=== PATIENT | male | born 1955 | race Caucasian/White ===

== ENCOUNTER 2024-04-08 09:39 | Inpatient (IN) | payer BC, SELFPAY ==
[2024-04-07 21:10] VITALS: BP 137/90
[2024-04-07 22:20] LABS: % Basophils 0.5 % (0-2); % Immature Granulocytes 1.1 % (0-0.5); % Monocytes 4.8 % (1.7-9.3); % Neutrophils 83.6 % (42.2-75.2); Absolute Immature Granulocytes 0.1 10^3/uL (0-0.05); Absolute Lymphocytes 0.6 10^3/uL (1.2-3.4); Absolute Monocytes 0.3 10^3/uL (0.1-0.6); Absolute Neutrophils 5.4 10^3/uL (1.4-6.5); Hematocrit 36.5 % (39.0-52.0); Hemoglobin 13.1 g/dL (13.0-18.0); Mean Corp Hgb Conc. 35.9 g/dL (33.0-37.0); Mean Corpuscular Hgb 34.7 pg (27.0-31.0); Mean Corpuscular Volume 96.6 fL (80.0-94.0); Mean Platelet Volume 9.1 fL (7.4-10.4); Nucleated Red Blood Cells % 0 % (-); Platelet Count 210 10^3/uL (130-400); Red Blood Cell Count 3.78 10^6/uL (4.70-6.10); Red Cell Dist. Width 12.5 % (11.5-14.5); White Blood Cell Count 6.4 10^3/uL (4.8-10.8)
[2024-04-07 22:30] LABS: COVID-19 Antigen Negative (Negative)
[2024-04-07 22:31] LABS: ALT (SGPT) 51 U/L (0-50); AST (SGOT) 48 U/L (17-59); Albumin 4.2 g/dl (3.5-5.0); Alkaline Phosphatase 108 U/L (38-126); Blood Urea Nitrogen 20 mg/dl (9-20); Calcium 9.3 mg/dl (8.4-10.2); Carbon Dioxide 26 mmol/L (22-30); Chloride 92 mmol/L (98-107); Glucose 118 mg/dl (70-99); Potassium 4.4 mmol/L (3.5-5.1); Sodium 129 mmol/L (135-145); Total Bilirubin 0.9 mg/dl (0.2-1.3); Total Protein 6.9 g/dl (6.3-8.2); eGFR > 60.00
--- NOTE | 2024-04-07 23:57 | ED.GENMED ---
History of Present Illness
General
Chief Complaint: Weakness
Source: patient
Exam Limitations: none
Time Seen by Provider: 04/07/24 22:46
History of Present Illness
History of Present Illness:
This is a 68 year old male that comes in with c/o vomiting and diarrhea. States that he has been sick for 2 days and today he is very weak. Patient states that he fell at home today. States that he but both of his knee's and hit his face. States
that there was no LOC and he was unable to get up. States that he did have chills. Denies any fever, chest pain, SOB, abd pain, headache, dizziness, urinary burning.
Past History
Past History
ED Past Medical History: Cancer (Prostate Cancer), HTN, Hypercholesterolemia, Psychiatric (Anxiety) and Other (Cervical radiculopathy)
ED Past Surgical History: Appendectomy, Tonsilectomy and Urological (Prostatectomy)
Social History
Tobacco: Non-smoker
Alcohol: Occasional
Personal: Single
Living: alone
Review of Systems
Review of Systems
All Other Systems: ROS reviewed and negative except as documented in HPI and ROS
Constitutional: Reports chills; Denies fever
EENT: Reports no symptoms
Respiratory: Reports no symptoms; Denies cough or trouble breathing
Cardiac: Reports no symptoms; Denies chest pain
ABD/GI: Reports nausea, vomiting and diarrhea; Denies abdominal pain
: Reports no symptoms; Denies dysuria, frequency or urgency
Musculoskeletal: Reports no symptoms
Skin: Reports no symptoms
Neurological: Denies dizzy or headache
Psychiatric: Reports no symptoms
Phy Exam
General Physical Exam
General Presentation: no apparent distress
General age: appears stated age
General Skin: warm and dry
General Habitus: elderly
General Mental: alert
General Hydration: dry mucous membranes
ENT Exam
ENT Exam: TM's normal, pharynx normal, neck supple and other (Dried blood noted in left nares)
Eye Exam
Eye Exam: EOMI
Cardiovascular Exam
Cardiovascular Exam: regular rate/rhythm, no edema, no murmur and normal peripheral pulses
Pulmonary Exam
Pulmonary Exam: lungs clear, no respiratory distress, no rales, chest non tender, no crackles, no rhonchi, no wheezing and no cough
Gastrointestinal Exam
Gastrointestinal Exam: normal bowel sounds, non tender, soft, no organomegaly, no pulsatile mass and non distended
Musculoskeletal Exam
Musculoskeletal Exam: full ROM and no edema
Skin Exam
Skin Exam: normal color, warm/dry, no rash, no petechia, laceration (Of the right knee) and other (Superficial laceration to the left knee, Laceration of the right knee sutured)
Psychiatric Exam
Psychiatric Exam: normal mood/affect
Course
Orders/Labs/Results
Orders:
Orders
04/07/24 21:17
CR Knee- Right 4 Or More View* Urgent
Comment:
Reason For Exam: injury and R/O FB landed on glass
Knee, Left 4 or More Views [CR Knee - Left 4 Or More View*] Urgent
Comment:
Reason For Exam: injury abd R/O FB the patient landed on glass
04/07/24 21:18
Electrocardiogram (*1) Urgent
Reason for Study: Fatigue / Weakness
04/07/24 21:[address] [CT Head W/o Iv Contrast] Urgent
Comment:
Reason For Exam: head injury
EKG- Treatment ONCE
04/07/24 21:34
Facial Bones wo Contrast CT [CT Facial Bones W/o Iv Contras] Urgent
Comment:
Reason For Exam: FALL
04/07/24 22:09
CMP [Comprehensive Metabolic Panel] Urgent
COVID-19 Antigen Urgent
Source: Nasal Swab
Complete Blood Count/With Diff Urgent
Influenza A+B Rapid Molecular Urgent
[facility] Source: Nasal Swab
Specimen Description:
Abnormal Lab Results
04/07/24
22:09
RBC 3.78 L 10^6/uL
(4.70-6.10)
Hct 36.5 L %
(39.0-52.0)
MCV 96.6 H fL
(80.0-94.0)
MCH 34.7 H pg
(27.0-31.0)
Abs Immat Gran (auto) 0.1 H 10^3/uL
(0-0.05)
Absolute Lymphs (auto) 0.6 L 10^3/uL
(1.2-3.4)
Immature Gran % 1.1 H %
(0-0.5)
Neutrophils % 83.6 H %
(42.2-75.2)
Lymphocytes % 10.0 L %
(20.5-51.1)
Sodium 129 L mmol/L
(135-145)
Chloride 92 L mmol/L
(98-107)
Glucose 118 H mg/dl
(70-99)
ALT 51 H U/L
(0-50)
04/07/24 22:09
04/07/24 22:09
Hyponatremia, Chloride low. Hyperglycemia. ALT very slightly elevated. negative for COVID.
Vital Signs
Initial and Last Documented VS:
Initial Vital Signs
Temp Pulse Resp BP Pulse Ox
98.9 F 104 18 137/90 94
04/07/24 21:10 04/07/24 21:10 04/07/24 21:10 04/07/24 21:10 04/07/24 21:10
Last Documented Vital Signs
Temp Pulse Resp BP Pulse Ox
98.9 F 104 18 137/90 94
04/07/24 21:10 04/07/24 21:10 04/07/24 21:10 04/07/24 21:10 04/07/24 21:10
Procedures
Laceration Closure
Right Knee:
Status of Wound: clean
Size of Wound in cm: 4
Description of Wound Edges: sharp
Preparation: cleaned with saline and cleaned with Betadine (Scrub and peroxide)
Anesthesia: 1% Lidocaine with epi
Revision/Debridement: routine- no revision
Wound exploration: explored to base- no FB
Type of Closure: single layer closure
Skin Closure Material: 4-0 nylon
Number of sutures: 13
Left Knee:
Status of Wound: clean
Size of Wound in cm: 2
Description of Wound Edges: sharp
Preparation: cleaned with saline
Type of Closure: Dermabond-skin glue
Additional information:
With steri strips
MDM/Problems Addressed
Differential Diagnosis Includes:
Viral syndrome, Hyponatremia.
MDM/Problems Addressed:
This is a 68 year old male that comes in with c/o weakness and and fall. States that he has had vomiting and diarrhea for the past 2 days. States that today he fell hitting his face and has laceration to both knee's.
Will check labs, CT head and facal bones. COVID, Suture lacerations.
Exxplained to patient that he does have a nasal fracture. This can be followed up with the ENT specialist. He has a laceration of the right knee with 13 suture. They can be removed in the next 10-14 days. The left knee has steri strips with
Dermabond and this will fall off on its own. Family states that the patient has so much trash in his home that there is no were to walk. Since he has had diarrhea it is everywhere. Will admit patient for weakness, Laceration, Fractures Falls and
Hyponatremia.
Chronic conditions affecting care: HTN
Acute Exacerbation and/or Progression of Chronic Illness:
NA
*Radiology
Radiology exam reviewed: radiology read reviewed (CT facial bones-There is acute displaced nondepressed nasal bone fracture. There is mild bilateral ethmoid sinusitis. CT head-There is no focal or acute intracranial abnormalities. There is mild
diffuse cortical and cerebellar atrophy Knee, right-There is an 8mm triangular shaped foreign body), all reviewed NAD by ED Provider (X-ray right knee=close to the skin surface overlying the anterolateral aspect proximal tibial metaphysis. There is
a 9mm oval foreign body close to the skin surface at the anterior medial aspect of the patella. Left knee-There is a 4mm traingular-shaped foreign body close to the skin surface at ) and other (Left knee Cont- lateral aspect of the proximal tibial
diaphysis. )
*Pulse Oximetry
Patient hypoxic: no
*EKG
Interpreted by ED Provider?: Yes
Heart Rate: 99
Rate: normal
Rhythm: sinus
[place]: left axis deviation
Interval: normal interval
QRS Pattern: normal QRS
Ischemia: no ischemia
*Harbormaster Interpretation
Rate: Harbormaster- N/A
*Critical Care Note
Total Time (30-74mins, 75-104mins- exclusive of procedures): Not Applicable
ED Attending Note
-
Portions of this chart may have been created with voice recognition software.� Occasional wrong word or��sound alike� substitutions may have occurred due to the inherent limitations of voice recognition software.
Discharge Plan
Departure
Patient Disposition: Admit
Date of Disposition: 04/08/24
Time of Disposition: 00:14
Admit to: Med/Surg
Presentation/result/management discussed w/ accepting MD/DO: Hospitalist
Patient with high blood pressure during this ER visit?: Yes
Covid-19: Negative COVID-19
Discharge Problem:
Nausea vomiting and diarrhea, Hyponatremia, Fracture of nasal bone, Falls, Laceration of knee, right, Superficial laceration left knee, Weakness
Prescriptions:
No Action
bacitracin zinc 1 APPLIC ointment
1 applic topical BID Qty: 1 0RF
metoprolol succinate [Toprol XL] 25 mg tablet extended release 24 hr
25 mg PO DAILY Qty: 30 0RF
cephalexin 500 mg capsule
500 mg PO Q6H Qty: 28 0RF
amoxicillin-pot clavulanate 875-125 mg tablet
1 tab PO BID Qty: 20 0RF
Referrals:
UNKNOWN - PT DOES,NOT KNOW [Family Provider] -
Interventions
Interventions:
*Risk Screen - Suicide Last Done: 04/07/24 21:10
*ED COVID-19 Vaccine History Last Done: 04/07/24 21:10
Discharge Date and Time
Print Language: BULGARIAN
[2024-04-08] VITALS (12 sets, daily range): BP systolic 129–165; BP diastolic 67–112; BMI 31.3
[2024-04-08 00:22] LABS: Urine Albumin Negative (Neg - Trace); Urine Bilirubin Negative (Negative); Urine Character Clear (Clear); Urine Color Yellow; Urine Glucose Negative (Negative); Urine Ketone Negative (Negative); Urine Leukocyte Negative (Negative); Urine Nitrite Negative (Negative); Urine Occult Blood 1+ (Negative); Urine Urobilinogen Negative (Neg - 1+)
--- NOTE | 2024-04-08 00:32 | HPS.HSE ---
Family Physician
-
Family Physician: NOT KNOW UNKNOWN - PT DOES
Chief Complaint
-
Weakness and fall
History of Present Illness
This is a 68-year-old was past medical history significant for anxiety and hypertension presenting to the emergency department with a fall, with laceration of the right knee and superficial laceration to the left knee as well as nondisplaced nasal
fracture.
Patient tells me that for a few days he has been having diarrhea and vomiting. The last diarrhea episode was yesterday. He denies having any diarrhea today. There was no melena and no hematochezia. He did not ED reports intermittent vomiting and
nausea with decreased p.o. intake. He states he has been drinking mostly water. He reports intermittent chills at home. He lives by himself and denies any known sick contacts. He reports only taking metoprolol, he also drinks about 2 cups of
wine daily.
He is reported to [employer] at home with numerous objects and he likely tripped on 1 of these as he can barely walk around his house. He reports history of prostate cancer status post surgery with episodes of urinary urgency but no frequency
and no nocturia. Denies dysuria.
In the emergency department initial vital signs were stable, temp was 98.9, blood pressure was 137/90 with a pulse of 100.
CBC was unremarkable
Chemistries notable for sodium of 129, BUN was 20 and creatinine 1.1. LFTs shows a slight elevation in ALT to 51 which is similar to prior. UA is unremarkable. COVID and flu test were negative.
Medical History
Past Medical History
Past Medical History: Reports Cancer (Prostate cancer status post resection), HTN, Hypercholesterolemia and Psychiatric (anxiety)
Past Surgical History: Reports Appendectomy, Tonsilectomy and Urological (Prostatectomy)
Social History
Tobacco: Non-smoker
Alcohol: Occasional
Drug: None
Personal: Single
Living: Alone
Employment: Employed
Family History
Family History: Not pertinent
Allergies / Home Medications
Allergies reflects when Allergies were last updated in [facility].
Home Medications with original date entered in [facility]
Allergy/Medication List:
Allergies
Allergy/AdvReac Type Severity Reaction Status Date / Time
No Known Allergies Allergy Verified 04/07/24 21:10
Home Medications
metoprolol succinate 25 mg tablet,extended release 24 hr (Toprol XL) 25 mg PO DAILY #30 tabs 12/30/22
alprazolam 2 mg tablet (Xanax) 1 mg PO PRN PRN anxiety/sleep 04/08/24
zolpidem 10 mg tablet (Ambien) 10 mg PO HS 04/08/24
Review of Systems
-
History Source: Patient
Constitutional: Reports Fatigue
EENT: Reports No Symptoms
Respiratory: Reports No Symptoms
Cardiac: Reports No Symptoms
Abdomen/GI: Reports No Symptoms
: Reports No Symptoms
Musculoskeletal: Reports No Symptoms
Neurological: Reports Weakness
Endocrine: Reports No Symptoms
Hematologic/Lymphatic: Reports No Symptoms
Psych: Reports No Symptoms
Physical Exam
Vital Signs
Vital Signs
Temp Pulse Resp BP Pulse Ox
98.9 F 104 18 137/90 94
04/07/24 21:10 04/07/24 21:10 04/07/24 21:10 04/07/24 21:10 04/07/24 21:10
Physical Exam
General: Comfortable
HEENT: NormoCephalic, Anicteric, PERRLA and Other (small laceration down the right side of the nose)
Respiratory: Clear
Cardiac: S1/S2 and Regular Rhythm
Breast: Deferred by me
GI: Soft, Non Tender, Non Distended and Normal Bowel Sounds
Rectal: Deferred by Provider
Genito-urinary: Clear Urine
Musculoskeletal: No Clubbing, No Cyanosis and No Edema
Skin: Warm and Other (laceration of the right knee s/p sutures. )
Neuro: AO x 3 and Nonfocal/grossly intact
Hematologic/Lymphatic: No Lymphadenopathy
Psych: Calm
Laboratory Results
-
04/07/24 22:09
04/07/24 22:09
Laboratory Results
Total Bilirubin 0.9 mg/dl (0.2-1.3) 04/07/24 22:09
AST 48 U/L (17-59) 04/07/24 22:09
ALT 51 U/L (0-50) H 04/07/24 22:
Alkaline Phosphatase 108 U/L (38-126) 04/07/24 22:09
Data Reviewed
-
CT Scan: Report Reviewed by me
Lab Data: Labs Reviewed by me
Old Records: Reviewed
Impression/Plan
-
IMPRESSION:
Patient with 2 to 3 days of diarrhea and vomiting with decreased p.o. intake who presents to the emergency department following a fall with laceration of the right hand superficial laceration of the left knee as well as a mild nasal bone injury. CT
scan shows acute nondisplaced nondepressed nasal bone fracture. Mild bilateral ethmoid sinusitis. The head CT shows no focal abnormalities. Found to be hyponatremic to 129.
Plan:
1. Hyponatremia - Na 129 recent diarrhea, vomiting and decreased po intake. Drinking mostly water. No hctz, thiazides or AEDs. Looks dry on exam. Hypovolemic hyponatremia suspected
- admit to med/surg obs
- IV NS overnight
- check U na and Osm now with follow up Serum Na in am
- monitor for ongoing diarrhea (patient stated it stopped)
2. Weakness - Suspect due to viral illness and dehydration. Initial temp was normal but felt warm to me and repeat was febrile. No immediate source of infection. COVID/Flu negative. U/A unremarkable.
- check chest xray and procalcitonin
- monitor fever profile
- if diarrhea likley viral
3. HTN
- continue metoprolol for now
4. PT evaluation
DVT PPX - lovenox sq
Code status - full code.
[2024-04-08 00:49] LABS: Urine Bacteria Moderate (Negative); Urine White Cell 0-2 /HPF (0-5)
[2024-04-08 01:18] LABS: Osmolality Urine 197 mOsm/kg (300-900)
[2024-04-08] MEDS: AMBIEN 10 MG PO (01:19)
[2024-04-08 01:23] LABS: Urine Sodium 21 mmol/L (30-90)
[2024-04-08 01:40] LABS: Alcohol None Detected
[2024-04-08] MEDS: NSS 1000 IV (02:06)
[2024-04-08 02:14] LABS: Procalcitonin 0.67 ng/ml (0.0-0.25)
[2024-04-08 07:08] LABS: Hemoglobin 12.8 g/dL (13.0-18.0); Mean Corp Hgb Conc. 35.6 g/dL (33.0-37.0); Mean Corpuscular Hgb 34.5 pg (27.0-31.0); Mean Platelet Volume 9.6 fL (7.4-10.4); Platelet Count 174 10^3/uL (130-400); Red Blood Cell Count 3.71 10^6/uL (4.70-6.10); Red Cell Dist. Width 12.6 % (11.5-14.5)
[2024-04-08 07:55] LABS: Blood Urea Nitrogen 17 mg/dl (9-20); Carbon Dioxide 25 mmol/L (22-30); Chloride 97 mmol/L (98-107); Estimated Creatinine Clearance 82 ml/min; Glucose 113 mg/dl (70-99); Lipase 32 U/L (23-300); Potassium 3.8 mmol/L (3.5-5.1); Sodium 132 mmol/L (135-145); eGFR > 60.00
--- NOTE | 2024-04-08 08:02 | W.PN.HOSP.TC ---
Addendum entered and electronically signed by Oskar Escamilla MD 04/08/24 14:27:
#Proctocolitis on CT
added flagyl
#Mesenteric panniculitis
slowly worsening since 2023, Humberto
Rheumatology referral as outpatient
#Hepatic steatosis
Low fat diet
GI as outpatient
Original Note:
Today's Communication/Plan
-
see PN
Assessment / Plan
Assessment / Plan
68yo M with anxiety d/o, insomnia, HTN came after he fell down and broke his nose. He started with weakness for couple of days. Admits to daily alcohol around 1 bottle of wine. last drink 2 days ago, however he does not remember it. Clear picture of
alcohol withdrawal as well as accidental findings of UTI. Also complained of diarrhea over past few days, but no abdominal pain or tenderness next day after admission
A/P
#Alcohol abuse with alcohol withdrawal
MSAS protocol
Thiamine/FOlate
Phenobarb taper
watch for DT
check serum alcohol and UDS
#UTI
CT abd
ceftriaxone
pending Ucx
#Hematuria
outpatient Urology
#Mild hyponatremia
2/2 increased water intake
NS IVF
serial BMP
Urine osm 127 with Tyler 21 - most likely increased oral free water intake
#acute nondisplaced nondepressed nasal bone fracture with sinuusitis
Add doxy
ENT outpatient
#R knee arbrasion
clear dressing
XR knee
wound care
#Mild ALT elevation
check INR, HepC and follow LFT
DVT ppx Lovenox
Full code
I have spent at least 59min reviewing chart, test results and direct patient care
Anticipated Discharge: 24 - 48 hours
Subjective/Interval History
-
Date of Service: April 08, 2024
Objective Data
-
Labs:
Laboratory Results
04/07/24 04/08/24 04/08/24
22:09 06:20 06:21
WBC 6.4 5.0
Hgb 13.1 12.8 L
Hct 36.5 L 36.0 L
Plt Count 210 174
PT
INR
APTT
Sodium 129 L 132 L
Potassium 4.4 3.8
Chloride 92 L 97 L
Carbon Dioxide 26 25
BUN 20 17
Creatinine 1.1 1.0
Glucose 118 H 113 H
Calcium 9.3 9.0
Total Bilirubin 0.9
AST 48
ALT 51 H
Alkaline Phosphatase 108
04/08/24
07:55
WBC
Hgb
Hct
Plt Count
PT Pending
INR Pending
APTT Pending
Sodium
Potassium
Chloride
Carbon Dioxide
BUN
Creatinine
Glucose
Calcium
Total Bilirubin
AST
ALT
Alkaline Phosphatase
Vital Signs:
Vital Signs
Temp Pulse Resp BP Pulse Ox
100.0 F 102 33 147/82 94
04/08/24 01:26 04/08/24 07:00 04/08/24 07:00 04/08/24 07:00 04/08/24 07:00
Review of Systems
-
History Source: Patient
All other systems: Reviewed and negative
Physical Exam
-
General: No Apparent Distress and Other (restless)
HEENT: Other (nasal pain)
Respiratory: Clear to Auscultation
Cardiac: Regular Rhythm and Tachycardic
GI: Soft, Nontender and Nondistended
Musculoskeletal: No Clubbing, No Cyanosis, No Edema and Other (R knee superfiscial bleeding)
Neuro: Awake, Alert, Oriented and AO x 3
Psych: Anxious
[2024-04-08] MEDS: OMNIPAQUE 50 ML PO (08:39)
[2024-04-08] MEDS: FOLVITE 1 MG PO (08:40)
[2024-04-08] MEDS: TOPROL XL 25 MG PO (08:40)
[2024-04-08] MEDS: VIBRAMYCIN 100 MG PO ×2 (08:40→20:52)
[2024-04-08] MEDS: TYLENOL 650 MG PO (08:40)
[2024-04-08] MEDS: ROCEPHIN 1000 MG IV (08:41)
[2024-04-08] MEDS: STERILE WATER FOR INJECTION 10 ML IV (08:41)
[2024-04-08] MEDS: THIAMINE INJECTION 200 MG IV ×2 (08:41→20:52)
[2024-04-08 08:50] LABS: INR 1.05
[2024-04-08 08:51] LABS: APTT 28.4 Sec (23.4-35.0)
[2024-04-08 08:56] LABS: Osmolality Urine 476 mOsm/kg (300-900)
[2024-04-08 08:57] LABS: Amphetamines Negative (Negative); Barbiturates Negative (Negative); Benzodiazepines Positive (Negative); Buprenorphine Negative (Negative); Cocaine Negative (Negative); Magnesium 2.1 mg/dl (1.6-2.3); Marijuana Negative (Negative); Methadone Negative (Negative); Methamphetamines Negative (Negative); Opiates Negative (Negative); Phencyclidine Negative (Negative); Tricyclic Antidepressants Negative (Negative)
[2024-04-08 08:59] LABS: Alcohol None Detected
[2024-04-08 09:03] LABS: Urine Sodium 75 mmol/L (30-90)
[2024-04-08] MEDS: PHENOBARBITAL 97.5 MG IV ×3 (09:48→21:51)
[2024-04-08 09:53] LABS: Fentanyl, Urine Negative (Negative)
--- NOTE | 2024-04-08 11:45 | WOUNDNOTE ---
[facility] RN NOTE: Reviewed chart and met with patient. Patient had recent fall resulting in open wounds to right and left knees. Right knee with sutures and some superficial abrasions. No draining or erythema noted at time of assessment. Left knee with
intact steri strips, no drainage noted. ABD and ISAI applied. Sacrum and heels intact. Patient moving frequently in stretcher. Housekeeping called by this tag writer for [facility] as patient has been admitted but no bed
available yet. BRET Lin made aware that bed was ordered. Will sign off.
--- NOTE | 2024-04-08 12:15 | PTCARENOTE ---
pt aaox3 forgetful about condition. pt unsteady gate. walk along to bathroom. bed alarm on pt. ivf running as ordered. bilat knee dressing in place.
[2024-04-08 13:03] LABS: Hepatitis C Antibody Negative (Negative)
[2024-04-08] MEDS: FLAGYL 500 MG 100 IV ×2 (14:40→20:59)
--- NOTE | 2024-04-08 15:13 | CM ---
CM reviewed medical records. CM met with patient, patient's sister in law Nay and patient's friend. CM confirmed demographics. Family stated that patient has two possible residences to return to. Patient does have ranch style home that he can
access if needed. Patient does not have a history of VN or SNF.
Patient reports history of alcohol use including 3-4 glasses of wine for years.
Patient stated that he does not want inpatient rehab at this time. Family expressed that they believe he needs SNF prior to returning home. PT has further recommended skilled.
Patient's sisters did express interest in [facility], [facility] or [facility]. CM advised that given patient's active alcohol withdrawal, patient will have to be medically cleared prior to discharge. Sister in law asked why patient couldn't be
discharged to a drug and alcohol rehab. CM advised that his functional status need improving prior to inpatient drug and alcohol rehab.
[2024-04-08] MEDS: LOVENOX 40 MG SC (20:52)
[2024-04-08] MEDS: DILAUDID 0.5 MG IV (20:54)
[2024-04-09] MEDS: FLAGYL 500 MG 100 IV (05:15)
[2024-04-09 06:00] VITALS: BMI 31.1
[2024-04-09 06:20] LABS: % Basophils 0.3 % (0-2); % Eosinophils 0.3 % (0-6); % Immature Granulocytes 0.5 % (0-0.5); % Lymphocytes 13.6 % (20.5-51.1); % Neutrophils 73.3 % (42.2-75.2); Absolute Lymphocytes 0.9 10^3/uL (1.2-3.4); Absolute Monocytes 0.8 10^3/uL (0.1-0.6); Absolute Neutrophils 4.6 10^3/uL (1.4-6.5); Hematocrit 33.6 % (39.0-52.0); Mean Corp Hgb Conc. 35.7 g/dL (33.0-37.0); Mean Corpuscular Hgb 35.1 pg (27.0-31.0); Mean Corpuscular Volume 98.2 fL (80.0-94.0); Mean Platelet Volume 9.4 fL (7.4-10.4); Nucleated Red Blood Cells % 0 % (-); Platelet Count 154 10^3/uL (130-400); Red Blood Cell Count 3.42 10^6/uL (4.70-6.10); Red Cell Dist. Width 12.6 % (11.5-14.5); White Blood Cell Count 6.3 10^3/uL (4.8-10.8)
[2024-04-09 06:43] LABS: ALT (SGPT) 35 U/L (0-50); AST (SGOT) 47 U/L (17-59); Albumin 3.5 g/dl (3.5-5.0); Alkaline Phosphatase 83 U/L (38-126); Blood Urea Nitrogen 15 mg/dl (9-20); Calcium 8.7 mg/dl (8.4-10.2); Carbon Dioxide 30 mmol/L (22-30); Chloride 98 mmol/L (98-107); Estimated Creatinine Clearance 82 ml/min; Glucose 98 mg/dl (70-99); Potassium 3.6 mmol/L (3.5-5.1); Sodium 135 mmol/L (135-145); Total Bilirubin 0.8 mg/dl (0.2-1.3); eGFR > 60.00
[2024-04-09 07:00] VITALS: BP 111/73
[2024-04-09] MEDS: VIBRAMYCIN 100 MG PO (08:09)
[2024-04-09] MEDS: TOPROL XL 25 MG PO (08:10)
[2024-04-09] MEDS: ROCEPHIN 1000 MG IV (08:10)
[2024-04-09] MEDS: THIAMINE INJECTION 200 MG IV ×2 (08:10→20:51)
[2024-04-09] MEDS: STERILE WATER FOR INJECTION 10 ML IV (08:10)
[2024-04-09] MEDS: FOLVITE 1 MG PO (08:10)
[2024-04-09] MEDS: TYLENOL 650 MG PO (08:23)
[2024-04-09] MEDS: PHENOBARBITAL 97.5 MG IV ×3 (08:23→22:37)
[2024-04-09] MEDS: DESENEX/MITRAZOL/ZEASORB 1 APPLIC TOPICAL ×2 (12:04→20:51)
--- NOTE | 2024-04-09 12:09 | CM ---
Addendum entered by Emeli Washington 04/09/24 14:20:
referrals sent, pending OT assessment. Await response from SNF options.
Original Note:
Patient and brother Jamil seen in room. Patient continues to agree to SNF placement, CM will send referrals when PT/OT assessments available. CM update sent to physician to request OT assessment. CM will continue to follow for discharge planning
needs.
Plan; SNF pending acceptance.
--- NOTE | 2024-04-09 12:32 | W.PN.HOSP.TC ---
Today's Communication/Plan
-
switch to unasyn
stool studies
Assessment / Plan
Assessment / Plan
68yo M with anxiety d/o, insomnia, HTN came after he fell down and broke his nose. He started with weakness for couple of days. Admits to daily alcohol around 1 bottle of wine. last drink 2 days ago, however he does not remember it. Clear picture of
alcohol withdrawal as well as accidental findings of possible UTI, that later was ruled out. Also complained of diarrhea over past few days, but no abdominal pain or tenderness next day after admission. CT abd showed proctocolitis.
A/P
#Alcohol abuse with alcohol withdrawal
MSAS protocol
Thiamine/FOlate
Phenobarb taper
watch for DT
check serum alcohol and UDS
#UTI ruled out
Ucx - no growth, stop rocephin
#Proctocolitis on CT
Unasyn
Stool studies
#Mesenteric panniculitis
slowly worsening since 2023, Apr
Rheumatology referral as outpatient
#Hepatic steatosis
Low fat diet
GI as outpatient
#Hematuria
outpatient Urology
#Mild hyponatremia
resolved
Urine osm 127 with [place] 21 - most likely increased oral free water intake
#acute nondisplaced nondepressed nasal bone fracture with sinusitis
ENT outpatient
Unas[facility]
#R knee abrasion
clear dressing
XR knee
wound care
#Mild ALT elevation
check INR, HepC and follow LFT
DVT ppx Lovenox
Full code
I have spent at least 59min reviewing chart, test results and direct patient care
Anticipated Discharge: 24 - 48 hours
Subjective/Interval History
-
Date of Service: April 09, 2024
Objective Data
-
Labs:
Laboratory Results
04/09/24
05:54
WBC 6.3
Hgb 12.0 L
Hct 33.6 L
Plt Count 154
Sodium 135
Potassium 3.6
Chloride 98
Carbon Dioxide 30
BUN 15
Creatinine 1.0
Glucose 98
Calcium 8.7
Total Bilirubin 0.8
AST 47
ALT 35
Alkaline Phosphatase 83
Vital Signs:
Vital Signs
Temp Pulse Resp BP Pulse Ox
97.5 F 85 18 111/73 96
04/09/24 07:00 04/09/24 07:00 04/09/24 07:00 04/09/24 07:00 04/09/24 07:00
I&O
04/08/24 04/09/24 04/10/24
06:59 06:59 06:59
Intake Total 1040 / 1040
Balance 1040 / 1040
[2024-04-09] MEDS: UNASYN IV ×2 (14:44→20:52)
[2024-04-09 15:00] VITALS: BP 124/74
[2024-04-09 16:00] VITALS: BP 124/74; PULSE 74; O2SAT 95
[2024-04-09 16:04] VITALS: BP 124/74; PULSE 74; O2SAT 95
[2024-04-09 16:30] LABS: Folate > 20.0 ng/ml (2.76-20); Vitamin B12 481 pg/ml (239-931)
[2024-04-09] MEDS: LOVENOX 40 MG SC (17:13)
[2024-04-09 23:40] VITALS: BP 118/75
[2024-04-10] MEDS: UNASYN IV ×2 (01:03→08:25)
[2024-04-10] MEDS: MELATONIN 5 MG PO (01:44)
[2024-04-10] MEDS: DILAUDID 0.5 MG IV (01:45)
[2024-04-10 06:00] VITALS: BMI 30.6
[2024-04-10 06:37] VITALS: BMI 30.9
[2024-04-10 06:39] LABS: % Basophils 0.4 % (0-2); % Eosinophils 1.4 % (0-6); % Immature Granulocytes 0.4 % (0-0.5); % Lymphocytes 14.3 % (20.5-51.1); % Monocytes 9.5 % (1.7-9.3); Absolute Eosinophils 0.1 10^3/uL (0-0.7); Absolute Lymphocytes 0.7 10^3/uL (1.2-3.4); Absolute Monocytes 0.5 10^3/uL (0.1-0.6); Absolute Neutrophils 3.8 10^3/uL (1.4-6.5); Hematocrit 31.6 % (39.0-52.0); Hemoglobin 11.2 g/dL (13.0-18.0); Mean Corp Hgb Conc. 35.4 g/dL (33.0-37.0); Mean Corpuscular Hgb 34.5 pg (27.0-31.0); Mean Corpuscular Volume 97.2 fL (80.0-94.0); Mean Platelet Volume 9.6 fL (7.4-10.4); Nucleated Red Blood Cells % 0 % (-); Platelet Count 169 10^3/uL (130-400); Red Blood Cell Count 3.25 10^6/uL (4.70-6.10); Red Cell Dist. Width 12.3 % (11.5-14.5); White Blood Cell Count 5.2 10^3/uL (4.8-10.8)
[2024-04-10 06:51] LABS: ALT (SGPT) 31 U/L (0-50); AST (SGOT) 40 U/L (17-59); Albumin 3.3 g/dl (3.5-5.0); Alkaline Phosphatase 83 U/L (38-126); Blood Urea Nitrogen 17 mg/dl (9-20); Carbon Dioxide 27 mmol/L (22-30); Chloride 99 mmol/L (98-107); Estimated Creatinine Clearance 91 ml/min; Glucose 99 mg/dl (70-99); Potassium 3.7 mmol/L (3.5-5.1); Sodium 133 mmol/L (135-145); Total Bilirubin 0.7 mg/dl (0.2-1.3); Total Protein 5.9 g/dl (6.3-8.2); eGFR > 60.00
[2024-04-10 07:00] VITALS: BP 125/80
[2024-04-10] MEDS: TOPROL XL 25 MG PO (08:25)
[2024-04-10] MEDS: FOLVITE 1 MG PO (08:25)
[2024-04-10] MEDS: THIAMINE INJECTION 200 MG IV (08:25)
[2024-04-10] MEDS: LUMINAL 64.8 MG PO (08:25)
[2024-04-10] MEDS: DESENEX/MITRAZOL/ZEASORB 1 APPLIC TOPICAL (08:32)
--- NOTE | 2024-04-10 10:29 | CM ---
Addendum entered by Emeli Washington 04/10/24 14:26:
Patient seen at bedside and per patient family states that patient has not signed up for [facility]. Nay and coming to discuss patient refusal to go to SNF and transport him home vs SNF.
Addendum entered by Emeli Washington 04/10/24 13:56:
auth approved per radha for today 04/10-04/16 for 7 days next review 04/16/24. CM sent updated information via tt to liaison and will work on transportation.
Please call report to [phone]/fax [phone]
Addendum entered by Emeli Washington 04/10/24 12:13:
Accepted for transfer to [facility] today, CM called auth to and pending reference number is [id number]. CM will await call back as case needs to go to biomedical service engineer.
PLan; transfer to SNF pending auth approval
Original Note:
Patient seen at bedside on phone with patient sister in law Nay. CM updated both about possible SNF for [facility] at [facility] and Nay provided phone number to have Liaison talk to her. CM awaiting confirmation from physician. CM will continue to follow
for discharge planning needs.
Plan; pending physician assessment bed available at [facility]
--- NOTE | 2024-04-10 12:30 | W.PN.HOSP.TC ---
Today's Communication/Plan
-
dc
Assessment / Plan
Assessment / Plan
68yo M with anxiety d/o, prostatectomy, insomnia, HTN came after he fell down and broke his nose. He started with weakness for couple of days. Admits to daily alcohol around 1 bottle of wine. last drink 2 days ago, however he does not remember it.
Clear picture of alcohol withdrawal as well as accidental findings of possible UTI, that later was ruled out. Also complained of diarrhea over past few days, but no abdominal pain or tenderness next day after admission. CT abd showed proctocolitis
found norovirus and C. difficile antigen positive, toxin negative.In view of symptoms - reasonable to treat for C.diff. Also received flagyl prior to the stool test. Improving, medically stable for d/c to rehab. R knee stitches to be removed in 5
days
A/P
#Alcohol abuse with alcohol withdrawal
#Fatty liver disease
#b/l gynecomastia
MSAS protocol
Thiamine/FOlate
Phenobarb taper completed, no signs of withdrawal after course
watch for DT
Counselled on cessation
#UTI ruled out
#Proctocolitis on CT 2/ Norovirus, cannot rule out concomitant C.diff colitis
Vanco oral for 10 days
Stool studies
#Mesenteric panniculitis
slowly worsening since Apr
Rheumatology referral as outpatient
#Hepatic steatosis
Low fat diet
GI as outpatient
#Hematuria
outpatient Urology
#Mild hyponatremia
resolved
Urine osm 127 with Tyler 21 - most likely increased oral free water intake
#acute nondisplaced nondepressed nasal bone fracture with sinusitis
ENT outpatient
Unasyn
#R knee abrasion
clear dressing
XR knee
wound care
#Mild ALT elevation
check INR, HepC and follow LFT
#Diverticulosis w/o diverticulitis
high fiber diet
DVT ppx Lovenox
Full code
I have spent at least 39min reviewing chart, test results and direct patient care
Anticipated Discharge: Today
Subjective/Interval History
-
Date of Service: April 10, 2024
Objective Data
-
Labs:
Laboratory Results
04/10/24
06:08
WBC 5.2
Hgb 11.2 L
Hct 31.6 L
Plt Count 169
Sodium 133 L
Potassium 3.7
Chloride 99
Carbon Dioxide 27
BUN 17
Creatinine 0.9
Glucose 99
Calcium 9.0
Total Bilirubin 0.7
AST 40
ALT 31
Alkaline Phosphatase 83
Vital Signs:
Vital Signs
Temp Pulse Resp BP Pulse Ox
97.3 F 108 16 125/80 93
04/10/24 07:00 04/10/24 07:00 04/10/24 07:00 04/10/24 07:00 04/10/24 07:00
I&O
04/09/24 04/10/24 04/11/24
06:59 06:59 06:59
Intake Total 1040 / 1040 1720 / 1720 120 / 120
Balance 1040 / 1040 1720 / 1720 120 / 120
Review of Systems
-
History Source: Patient
All other systems: Reviewed and negative
Physical Exam
-
General: No Apparent Distress
HEENT: Normocephalic
Respiratory: Clear to Auscultation
Cardiac: Regular Rhythm
GI: Soft, Nontender and Nondistended
Neuro: Awake, Alert and Oriented
Psych: Calm
--- NOTE | 2024-04-10 12:43 | W.DCSUMMARY ---
Discharge Summary
Discharge Data
Date of Admission: 04/08/24
Date of Discharge: 04/10/24
-
Pending Results: No
Hospital Course
68yo M with anxiety d/o, prostatectomy, insomnia, HTN came after he fell down and broke his nose. He started with weakness for couple of days. Admits to daily alcohol around 1 bottle of wine. last drink 2 days ago, however he does not remember it.
Clear picture of alcohol withdrawal as well as accidental findings of possible UTI, that later was ruled out. Also complained of diarrhea over past few days, but no abdominal pain or tenderness next day after admission. CT abd showed proctocolitis
found norovirus and C. difficile antigen positive, toxin negative.In view of symptoms - reasonable to treat for C.diff. Also received flagyl prior to the stool test. Improving, medically stable for d/c to rehab. R knee stitches to be removed in 5
days
I have spent at least 39min reviewing chart, test results and direct patient care
Patient was managed for:
#Alcohol abuse with alcohol withdrawal
#Fatty liver disease
#b/l gynecomastia
#UTI ruled out
#Proctocolitis on CT 2/2 Norovirus, cannot rule out concomitant C.diff colitis
#Mesenteric panniculitis
#Hepatic steatosis
#Hematuria
#Mild hyponatremia
#acute nondisplaced nondepressed nasal bone fracture with sinusitis
#R knee abrasion
#Mild ALT elevation
#Diverticulosis w/o diverticulitis
Discharge Plan
-
Patient Disposition: Detention/SNF
Discharge Diagnosis/Procedures: Colitis
Diet: Regular
Driving Restrictions: As prior to admission
Other Services: PT
Activity Restrictions/Additional Instructions:
Wound Care Instructions Right knee sutures and left knee steri strips - Clean with normal saline, cover with ABD and wrap with ISAI. Change daily and PRN remove in 5 days, if healed
Referrals:
Martha Gee MD [Consulting Staff] - in four to six weeks (Mesenteric panniculitis)
Sonny Drummond MD [Active] - in one to two months (Hematuria)
UNKNOWN - PT DOES,NOT KNOW [Family Provider] -
Prescriptions:
New
thiamine HCl (vitamin B1) 100 mg Tablet
100 mg PO BID Qty: 30 0RF
vancomycin 50 mg/mL Recon Soln
125 mg PO Q6 Qty: 40 0RF
folic acid 1 mg Tablet
1 mg PO DAILY Qty: 30 0RF
Continued
metoprolol succinate [Toprol XL] 25 mg tablet extended release 24 hr
25 mg PO DAILY Qty: 30 0RF
multivitamin Tablet
1 tab PO DAILY
ascorbic acid (vitamin C) [Vitamin C] 500 mg Tablet
500 mg PO DAILY
vitamin D3-vitamin K2 125 mcg (5,000 unit)-100 mcg Capsule
2 cap PO DAILY
alprazolam 1 mg Tablet
1 mg PO TID PRN (Reason: anxiety) Qty: 9 0RF
Rx Instructions:
04/09/24: filled alprazolam 1mg #90 tablets/30 day supply on 04/01/24 at [facility]
Discontinued
zolpidem [Ambien] 10 mg Tablet
10 mg PO HS
Patient Comments:
04/09/24: filled #30 tablets/30 day supply on 03/21/24 at [facility]
quercetin 500 mg Capsule
1 mg PO DAILY
Discharge Orders:
Discharge Patient (As Directed); Ordered 04/10/24
Ordered By: Oskar Escamilla
Discharge Date and Time
Print Language: KENYAN
[2024-04-10] MEDS: FIRVANQ 125 MG PO (13:14)
[2024-04-10 15:21] VITALS: BP 132/77
== END 2024-04-10 16:19 | DRG 155 ==
LOC: 3 WEST ACU 09:39
PROVIDERS: Clinical Nurse Specialist Family Health; Emergency Medicine; ADMITTING PHYSICIAN Internal Medicine; ATTENDING PHYSICIAN Internal Medicine; EMERGENCY PHYSICIAN Student in an Organized Health Care Education/Training Program
PROC: 0HQKXZZ Repair Right Lower Leg Skin, External Approach (ICD-10-PCS; 2024-04-08)
PROC: 0HQLXZZ Repair Left Lower Leg Skin, External Approach (ICD-10-PCS; 2024-04-08)
DX: S02.2XXA Fracture of nasal bones, initial encounter for closed fracture (principal); A08.11 Acute gastroenteropathy due to Norwalk agent; E87.1 Hypo-osmolality and hyponatremia; F10.139 Alcohol abuse with withdrawal, unspecified; K65.4 Sclerosing mesenteritis; S81.011A Laceration without foreign body, right knee, initial encounter; S81.012A Laceration without foreign body, left knee, initial encounter; I10 Essential (primary) hypertension; F41.9 Anxiety disorder, unspecified; E86.1 Hypovolemia; E78.00 Pure hypercholesterolemia, unspecified; G47.00 Insomnia, unspecified; K76.0 Fatty (change of) liver, not elsewhere classified; R31.9 Hematuria, unspecified; N62 Hypertrophy of breast; Z11.52 Encounter for screening for COVID-19; Z79.899 Other long term (current) drug therapy; Z85.46 Personal history of malignant neoplasm of prostate; W01.110A Fall on same level from slipping, tripping and stumbling with subsequent striking against sharp glass, initial encounter
CPT/HCPCS: 12002; 70450; 70486; 71046; 73560; 73564; 74177; 80048; 80053; 80306; 80307; 81003; 81015; 82077; 82607; 82746; 83690; 83735; 83935; 84100; 84145; 84300; 85025; 85027; 85610; 85730; 86803; 87040; 87045; 87046; 87086; 87324; 87427; 87449; 87502; 87798; 87811; 89055; 93005; 97116; 97163; 97166; 97530; 99285; Q9967

== ENCOUNTER → 2024-04-14 10:46 | Outpatient (REF) | payer OTHER, BC, SELFPAY ==
[2024-04-14 11:43] LABS: Hematocrit 38.9 % (39.0-52.0); Hemoglobin 12.7 g/dL (13.0-18.0); Mean Corp Hgb Conc. 32.6 g/dL (33.0-37.0); Mean Corpuscular Hgb 33.9 pg (27.0-31.0); Mean Corpuscular Volume 103.7 fL (80.0-94.0); Mean Platelet Volume 9.6 fL (7.4-10.4); Platelet Count 292 10^3/uL (130-400); Red Blood Cell Count 3.75 10^6/uL (4.70-6.10); Red Cell Dist. Width 12.6 % (11.5-14.5); White Blood Cell Count 7.7 10^3/uL (4.8-10.8)
[2024-04-14 11:50] LABS: Blood Urea Nitrogen 13 mg/dl (9-20); Calcium 9.4 mg/dl (8.4-10.2); Carbon Dioxide 28 mmol/L (22-30); Chloride 101 mmol/L (98-107); Glucose 83 mg/dl (70-99); Potassium 4.2 mmol/L (3.5-5.1); Sodium 139 mmol/L (135-145); eGFR > 60.00
== END ==
LOC: OLABP 10:46
PROVIDERS: ATTENDING PHYSICIAN Family Medicine
DX: R53.1 Weakness (principal)
CPT/HCPCS: 36415; 80048; 85027

== ENCOUNTER → 2024-06-20 12:21 | Outpatient (REF) | payer BC, SELFPAY | LOC: RAD 12:21 | PROVIDERS: ATTENDING PHYSICIAN Family Medicine | DX: M25.561 Pain in right knee (principal); M25.562 Pain in left knee | CPT/HCPCS: 73564 ==

== ENCOUNTER → 2024-11-24 14:50 | Outpatient (REF) | payer BC, SELFPAY | LOC: HWRAD 14:50 | PROVIDERS: ATTENDING PHYSICIAN Family Medicine | DX: R10.2 Pelvic and perineal pain (principal); M54.50 Low back pain, unspecified | CPT/HCPCS: 72110; 72170; 72220 ==